=== PATIENT | male | born 1950 | race African-American/Black ===

== ENCOUNTER → 2019-04-09 | Day surgery (SDC) | payer MEDICARE ==
[2019-04-06 13:20] LABS: BASOPHILS % 0.5 % (0.0-1.0); HEMATOCRIT 52.5 % (38.2-49.6); HEMOGLOBIN 15.9 g/dL (14.0-18.0); LYMPHOCYTES # (AUTO) 1.6 (1.0-3.2); LYMPHOCYTES % 41.1 % (18.0-39.1); MEAN CORPUSCULAR HEMOGLOBIN 23.1 pg (28-32); MEAN CORPUSCULAR HGB CONC 30.3 g/dL (31-35); MEAN CORPUSCULAR VOLUME 76.2 fL (81-99); MONOCYTES # (AUTO) 0.4 (0.2-0.8); MONOCYTES % 9.4 % (4.4-11.3); NEUTROPHILS # (AUTO) 1.9 (2.1-6.9); NEUTROPHILS % 47.5 % (38.7-80.0); PLATELET COUNT 197 x10e3/uL (140-360); RED BLOOD COUNT 6.89 x10e6/uL (4.3-5.7); RED CELL DISTRIBUTION WIDTH 18.2 % (11.7-14.4)
[2019-04-06 13:39] LABS: ANION GAP 13.8 mmol/L (8-16); BLOOD UREA NITROGEN 12 mg/dL (7-26); BUN/CREATININE RATIO 9 (6-25); CALCIUM 10.4 mg/dL (8.4-10.2); CARBON DIOXIDE 27 mmol/L (22-29); CHLORIDE 105 mmol/L (98-107); CREATININE, SERUM 1.34 mg/dL (0.72-1.25); EST GLOMERULAR FILTRATION RATE > 60 ML/MIN (60-); GLUCOSE 97 mg/dL (74-118); POTASSIUM 3.8 mmol/L (3.5-5.1); SODIUM 142 mmol/L (136-145)
--- NOTE | 2019-04-06 15:06 | Diagnostic Imaging Report ---
EXAMINATION: CHEST 2 VIEWS INDICATION: Pre-operative COMPARISON: None FINDINGS: LINES/TUBES:None LUNGS:The lungs are well-inflated. No focal consolidation or pulmonary edema. PLEURA:No pleural effusion or pneumothorax. MEDIASTINUM:The cardiomediastinal silhouette appears normal in size and shape. Atherosclerotic calcifications of the thoracic aorta. BONES/SOFT TISSUES:No acute osseous injury. ABDOMEN:No free air under the diaphragm. IMPRESSION: No focal pneumonia or pulmonary edema. Signed by: Awilda Osuna MD on 04/06/2019 3:03 PM
[~2019-04-09] MED LIST: AMOXICILLIN250 MG PO; BUPIVACAINE HCL 0.5% INJ 30 ML VIAL INJ ONE; DEXAMETHASONE SOD PHOS INJ 4 MG/ML VIAL ONE; FENTANYL CITRATE/PF 100MCG/2 ML INJ ONE; IBUPROFEN400 MG PO; KETOROLAC TROMETHAMINE 30 MG/ML VIAL ONE; LIDOCAINE HCL 2% LOCAL INJ 5 ML SDV VIAL INJ ONE; MIDAZOLAM HCL 2 MG/2 ML VIAL ONE; MORPHINE SULFATE INJ 10 MG/ML ONE; NEOSTIGMINE 1 MG/ML 10ML VIAL ONE; NORVASC5 MG PO; ONDANSETRON HCL INJ 2MG/ML 2ML 2 MG/ML VIAL ONE; PRAVASTATIN SOD40 MG PO; PROPOFOL IV EMULSION 10 MG/ML 20 ML VIAL ONE; RANITIDINE HCL150 MG PO; SEVOFLURANE INHAL SOLN 250 ML PEN BTL ONE; TRIAMTERENE-HCTZ1 EA PO; TYLENOL WITH C1 EACH PO; VITAMIN B; VITAMIN D400 UNIT PO
--- OUTSIDE RECORDS SUMMARY | 2019-04-09 07:29 | XMS REPORT ---
Author Author [facility] Address Unknown Phone Unavailable Care Team Providers Care [address] Justice Name Role Phone JAVIER BRIGHT Unavailable Unavailable Payers Payer Name Policy Type Policy Number Effective Date Expiration Date Problems This patient has no known problems. Allergies, Adverse Reactions, Alerts Allergy Name Allergy Type Status Severity Reaction(s) Onset Date Inactive Date Treating Clinician Comments No Known Allergies DA Active U 2016-09-19 00:00:00 Medications This patient has no known medications. Results Test Description Test Time Test Comments Text Results Atomic Results Result Comments CHEST 2 VIEWS 2019-04-06 15:02:00 [place] [address] Patient Name: JOSELO HARDEN JR MR #: [id number] : 1950 Age/Sex: 68/M Req #: [id number] Adm Physician: Ordered by: JAVIER BRIGHT DPM Report #: [id number] Location: OR Room/Bed: Procedure: [id number] DX/CHEST 2 VIEWS Exam Date: 04/06/19 Exam Time: 1400 REPORT STATUS: Signed EXAMINATION: CHEST 2 VIEWS INDICATION: Pre-operative COMPARISON: None FINDINGS: LINES/TUBES:None LUNGS:The lungs are well-inflated. No focal consolidation or pulmonary edema. PLEURA:No pleural effusion or pneumothorax. MEDIASTINUM:The cardiomediastinal silhouette appears normal in size and shape. Atherosclerotic calcifications of the thoracic aorta. BONES/SOFT TISSUES:No acute osseous injury. ABDOMEN:No free air under the diaphragm. IMPRESSION: No focal pneumonia or pulmonary edema. Signed by: Margie Rankin MD on 04/06/2019 3:03 PM Dictated By: MARGIE RANKIN MD [id number] Transcribed By: GIL on 04/06/19 [id number] COPY TO: JAVIER BRIGHT [facility],BIOPSY 2018-03-25 16:47:00 RUN DATE: 03/25/18 [place] [facility] PAGE 1 RUN TIME: 1647 Specimen Inquiry RUN USER: INTERFACE PATIENT: JOSELO HARDEN LOC: [place]UL U #: [id number] AGE/SX: 67/M ROOM: RE03/23/18REG DR: Freddie Blair : 50 BED: DIS: [place] [facility] [place] SPEC #: [id number] RECD: 03/23/18 STATUS: CARLENE BRIAN #: [id number] HO: 03/23/[address]: Freddie Blair MD ENTERED: 03/23/18 SP TYPE: GASTRIC BX OTHR DR: Beny Tinsley MD ORDERED: GROSS COPIES TO: Beny Tinsley MD [address] [place], [place] [id number] Freddie Blair MD [address] [place] [address] PROCEDURES: GROSS (03/25/18) TISSUES: 1. ANTRUM - BX 2. ESOPHAGUS, NOS - BX CLINICAL HISTORY COLLECTION DATE: 03/23/18 AP FINAL DIAGNOSIS Antrum, biopsy: REACTIVE GASTROPATHY NO INTESTINAL METAPLASIA SEEN NEGATIVE FOR HELICOBACTER PYLORI, GIEMSA CONTROL STAINS APPROPRIATELY NEGATIVE FOR MALIGNANCY Esophagus, biopsy: MILD CHRONIC INFLAMMATION AND REACTIVE EPITHELIAL CHANGES, MIXED SQUAMOUS ESOPHAGEAL AND GASTRIC TYPE MUCOSA NEGATIVE FOR INTESTINAL METAPLASIA, DYSPLASIA, AND MALIGNANCY DMW/sm D [id number], [id number] CONTINUED ON NEXT PAGE RUN DATE: 03/25/18 [facility] PAGE 2 RUN TIME: 7 Specimen Inquiry RUN USER: INTERFACE SPEC #: [id number] PATIENT: JOSELO HARDEN JR #[id number] ([facility]) MACROSCOPIC The first specimen is received in formalin, labeled with the patient's name and identified as "antrum bx". It consists of vieira material measuring 0.4 cm. An H E and a Giemsa stain will be prepared. The second specimen is received in formalin, labeled with the patient's name and identified as "esophagus bx". It consists of vieira-white biopsy material measuring 0.4 cm in aggregate. GROSS PERFORMED AT [facility] [address] [place] [id number] (p)[phone] MICROSCOPIC MICROSCOPIC PERFORMED AT [facility] All of the stains, including any controls performed, stain appropriately. [facility] [address] [place] [address] (p)[phone] PERFORMING SITE Diagnosis performed at: [facility] [address] [place], [place] [id number] Signed SIGNATURE ON FILE Sol Loyd 03/25/18 1647 END OF REPORT
[2019-04-09 12:00] VITALS: BP 135/79
--- NOTE | 2019-04-10 23:32 | Operative Report ---
DATE OF PROCEDURE: 04/09/2019 SURGEON: Dean Wick DPM PREOPERATIVE DIAGNOSIS: Hallux abductovalgus deformity of the right foot, severe. POSTOPERATIVE DIAGNOSIS: Hallux abductovalgus deformity of the right foot, severe. TITLE OF THE OPERATION: Lapidus bunionectomy, which includes a modified Garcia bunionectomy of the right foot and a fusion of the 1st metatarsocuneiform joint of the right foot. PROCEDURE IN DETAIL: The patient was taken to the operating room in a mildly sedated state, placed on the operating table in supine position. Following induction of general anesthetic, the right lower extremity was elevated to 60 degrees to exsanguinate before inflating the pneumatic thigh tourniquet to 350 mmHg for adequate hemostasis. Right lower extremity was placed on the operating table prior to performing the following procedure. Procedure #1, modified Lapidus bunionectomy; an approximate 10 cm dorsal linear incision was made overlying the dorsal aspect of 1st metatarsophalangeal joint of the right foot. The incision was deepened via sharp and blunt dissection on below the dorsal capsular structure. Care was taken to identify and retract all vital structures encountered. The head of the first metatarsal was delivered and surgical site remodeled utilizing oscillating saw. The conjoint tendon of the adductor hallucis muscle was identified and tenotomized. At this point, dissection was carried proximally to the 1st metatarsal cuneiform joint. That joint itself was dissected free, and utilizing an oscillating saw not only was the dorsal eminence, which was closer to the 1st and 2nd intermetatarsal space proximally removed, but also the articular cartilage from the distal medial cuneiform as well as the base of the proximal phalanx. This having been accomplished, the area was irrigated. All superficial and deep bleeders were electrocauterized. All nerves and arteries were retracted from harm's way. Excellent position with bidirectional correction. Mild plantarflexion and derotation were performed of the 1st metatarsal and two K-wires were used across K-wire angle to temporary fixate the joint. Radiographs and fluoroscopy were used to ensure proper positioning. At this point, the area was drilled with a 2-0 drill bit to fenestrate and BIO4 was packed into the void as a bone graft. The appropriate angular correction having best been accomplished, the two K-wires were used, retrograded back into place, and used as a lag screw guide pins. The distal to proximal screw was advanced dorsal to plantar. The area was irrigated with copious amounts of sterile saline solution being careful not to lose the BIO4. The appropriate dorsal plate was then fashioned for dorsal medial fixation. This having been accomplished and screws advanced across the joint line, there being three screws distally and three screws proximally. Excellent fixation was noted. The fixation line was intact and doubly compressed with BIO4 present. This having been accomplished, deep closure with 3-0 Vicryl, subcutaneous closure with 4-0 Vicryl, and skin closure with 4-0 nylon. The area of surgery was all blocked with 0.5 Marcaine and Decadron-LA. Release of pneumatic tourniquet showed a normal hyperemic flush to all digits of the right foot and the patient left the operating room with vital signs intact and minimal to no bleeding noted. The appropriate mildly compressive dressings as well as posterior splint were applied. The patient left the operating room as stated. He will follow with me within one week postoperatively. BIA Garcia/MICHAEL /[id number]
== END | disposition home or self-care (01) ==
LOC: OR 07:26
PROVIDERS: ATTEND Podiatrist Foot Surgery
DX: M20.11 Hallux valgus (acquired), right foot (principal); M19.271 Secondary osteoarthritis, right ankle and foot; M79.671 Pain in right foot; Z01.810 Encounter for preprocedural cardiovascular examination; Z01.812 Encounter for preprocedural laboratory examination; Z01.811 Encounter for preprocedural respiratory examination; K21.9 Gastro-esophageal reflux disease without esophagitis; F10.10 Alcohol abuse, uncomplicated; I10 Essential (primary) hypertension
CPT/HCPCS: 28292; 28297; 28740; 36415; 71046; 80048; 85025; 93005; J1100; J1885; J2001; J2250; J2270; J2405; J2704; J2710; J3010